=== PATIENT | male | born 1970 | race Caucasian/White ===

== ENCOUNTER 2021-07-18 17:28 | Inpatient (IN) | payer OTHER ==
[~2021-07-18] VITALS: Ht 180.3 cm; Wt 62.3 kg
[2021-07-18 17:55] LABS: BASOPHIL 0.4 % (0-2); EOSINOPHIL 0 % (0-5); HCT 54.9 % (42.0-52.0); HGB 18.9 g/dl (13.2-18.0); LYMPHOCYTE 20.1 % (15-48); MCH 29.7 pg (25.0-31.0); MCHC 34.4 g/dL (32.0-36.0); MCV 86.3 fL (78.0-100.0); MONOCYTE 4.3 % (0-12); MPV 8.5 fL (6.0-9.5); NEUTROPHIL 74.7 % (41-80); NRBC 0; PLT 454 K/uL (150-400); RBC 6.36 M/uL (4.70-6.00); RDW 14.6 % (11.5-14.0); WBC 14.3 K/uL (4.0-10.5)
[2021-07-18 17:59] LABS: PROTHROMBIN TIME 12.6 SECONDS (11.8-13.4)
[2021-07-18 18:00] LABS: PTT 25.9 SECONDS (24.4-34.7)
[2021-07-18 18:15] LABS: LACTIC ACID 5.5 mmol/L (0.4-1.9)
[2021-07-18 18:20] LABS: ALBUMIN 4.1 g/dL (3.4-5.0); BILIRUBIN - TOTAL 0.4 mg/dL (0.2-1.0); CREATININE 0.84 mg/dL (0.67-1.17); GLOBULIN (CALCULATION) 3.4 g/dL; MAGNESIUM 1.9 mg/dL (1.8-2.4); POTASSIUM 4.5 mmol/L (3.5-5.1); TOTAL PROTEIN 7.5 g/dL (6.4-8.2)
[2021-07-18 19:01] LABS: CORONAVIRUS 2019 SARS-COV-2 NEGATIVE (NEGATIVE); INFLUENZA A NAA NEGATIVE (NEGATIVE)
[2021-07-18 22:47] LABS: BILIRUBIN NEGATIVE (NEGATIVE); BLOOD NEGATIVE Ery/uL (NEGATIVE); CLARITY CLEAR (CLEAR); COLOR YELLOW (YELLOW); GLUCOSE (U) NORMAL (NORMAL); LEUKOCYTES NEGATIVE Leu/uL (NEGATIVE); NITRITE NEGATIVE (NEGATIVE); PROTEIN TRACE (LOW) mg/dL (NEGATIVE); SPECIFIC GRAVITY >=1.030 (1.001-1.030); UROBILINOGEN 0.2 mg/dL (0.2-1.0)
[2021-07-18 22:54] LABS: BARBITURATES NEGATIVE (NEGATIVE); ECSTASY (MDMA) NEGATIVE (NEGATIVE); MARIJUANA (THC) POSITIVE (NEGATIVE); METHADONE NEGATIVE (NEGATIVE); OPIATES NEGATIVE (NEGATIVE)
[2021-07-18 22:55] LABS: AMPHETAMINES NEGATIVE (NEGATIVE); OXYCODONE NEGATIVE (NEGATIVE)
[2021-07-19] MEDS ORDERED: VENLAFAXINE HC150 MG PO (01:56)
[2021-07-19] MEDS ORDERED: ROPINIROLE HCL1 MG PO (02:15)
[2021-07-19] MEDS ORDERED: LOPRESSOR25 MG PO (03:17)
[2021-07-19] MEDS ORDERED: NEURONTIN300 MG PO (03:18)
[2021-07-19] MEDS ORDERED: HYDROXYZINE PAM50 M1 PO (03:20)
[2021-07-19] MEDS ORDERED: REXULTI4 MG PO (03:21)
[2021-07-19 07:23] LABS: BASOPHIL 0.6 % (0-2); EOSINOPHIL 0.1 % (0-5); HCT 39.5 % (42.0-52.0); HGB 13.6 g/dl (13.2-18.0); MCHC 34.4 g/dL (32.0-36.0); MONOCYTE 10.5 % (0-12); MPV 8.5 fL (6.0-9.5); NEUTROPHIL 71.5 % (41-80); NRBC 0; PLT 329 K/uL (150-400); RBC 4.54 M/uL (4.70-6.00); WBC 14.5 K/uL (4.0-10.5)
[2021-07-19 07:41] LABS: BUN/CREAT RATIO (CALC) 24.6 RATIO; CREATININE 0.65 mg/dL (0.67-1.17); POTASSIUM 4.3 mmol/L (3.5-5.1)
[2021-07-20 03:50] LABS: HGB 12.6 g/dl (13.2-18.0); LYMPHOCYTE 32.5 % (15-48); MCH 30.6 pg (25.0-31.0); MCHC 34.1 g/dL (32.0-36.0); MCV 89.8 fL (78.0-100.0); MONOCYTE 10.3 % (0-12); MPV 8.6 fL (6.0-9.5); NEUTROPHIL 53.8 % (41-80); NRBC 0; PLT 263 K/uL (150-400); RBC 4.12 M/uL (4.70-6.00); RDW 14.1 % (11.5-14.0)
[2021-07-20 04:10] LABS: ALBUMIN 2.9 g/dL (3.4-5.0); BILIRUBIN - DIRECT 0.2 mg/dL (0.00-0.20); BILIRUBIN - TOTAL 1.1 mg/dL (0.2-1.0); BUN/CREAT RATIO (CALC) 13.5 RATIO; CREATININE 0.89 mg/dL (0.67-1.17); GLOBULIN (CALCULATION) 2.7 g/dL; POTASSIUM 3.7 mmol/L (3.5-5.1); TOTAL PROTEIN 5.6 g/dL (6.4-8.2)
--- NOTE | 2021-07-20 14:09 | NUR ---
07/20/21 [place]. [place]. [place] to [facility] for treatment. [facility] referred him to the hospital due to severity of etoh withdrawal. Mr. Ferrara reports that he wishes to retun to [facility]. Joshua Owusu, [facility] Admission, , states that Mr. Ferrara may return to [facility]. [facility] will provide transportation. Call the telephone number above when patient is ready for discharge.
[2021-07-21 04:12] LABS: IRON % SATURATION 23.5 %SAT (20-50)
[2021-07-21 04:37] LABS: ALBUMIN 2.9 g/dL (3.4-5.0); BILIRUBIN - TOTAL 0.5 mg/dL (0.2-1.0); CREATININE 0.77 mg/dL (0.67-1.17); GLOBULIN (CALCULATION) 2.7 g/dL; POTASSIUM 3.9 mmol/L (3.5-5.1); TOTAL PROTEIN 5.6 g/dL (6.4-8.2)
[2021-07-21 06:10] LABS: HBSAG SCREEN Negative (Negative); HCV AB 0.1 (0.0-0.9); HEP A AB, IGM Negative (Negative); HEP B CORE AB, IGM Negative (Negative); HIV AB/P24 AG SCREEN Non Reactive (Non Reactive)
--- NOTE | 2021-07-21 19:41 | NUR ---
1710 PATIENT DISCHARGED BY WHEELCHAIR, PICKED UP BY [facility] STAFF. IV AND MONITOR DCD. VERBALIZED UNDERSTANDING OF DISCHARGE INSTRUCTIONS. DISCHARGE SUMMARY AND DISCHARGE INSTRUCTIONS FAXED TO [facility].
== END 2021-07-21 17:10 | DRG 896 ==
LOC: FER 17:28 → FTCU 23:10
PROVIDERS: Emergency Medicine; Nurse Practitioner Acute Care; ADMIT Family Medicine
PROC: HZ2ZZZZ Detoxification Services for Substance Abuse Treatment (ICD-10-PCS; principal; 2021-07-18)
DX: F10.239 Alcohol dependence with withdrawal, unspecified (principal); R65.11 Systemic inflammatory response syndrome (SIRS) of non-infectious origin with acute organ dysfunction; N17.9 Acute kidney failure, unspecified; E87.2 Acidosis; R45.851 Suicidal ideations; Z20.822 Contact with and (suspected) exposure to COVID-19; F17.210 Nicotine dependence, cigarettes, uncomplicated; F32.A Depression, unspecified; E86.0 Dehydration; R73.9 Hyperglycemia, unspecified; R00.0 Tachycardia, unspecified; F12.90 Cannabis use, unspecified, uncomplicated; D64.9 Anemia, unspecified; G62.9 Polyneuropathy, unspecified; F41.9 Anxiety disorder, unspecified; Z20.5 Contact with and (suspected) exposure to viral hepatitis; Z86.718 Personal history of other venous thrombosis and embolism; Z79.899 Other long term (current) drug therapy
CPT/HCPCS: 36415; 36600; 71045; 80048; 80053; 80076; 80305; 81003; 82607; 82803; 83036; 83540; 83550; 83605; 83735; 84145; 85025; 85610; 85730; 87040; 87389; 87449; 93005; G0480; J1650; J2060; J2405; J3360; J3411; J3475; J7120; U0002